=== PATIENT | female | born 1965 | race Asian ===

== ENCOUNTER 2018-03-21 09:28 | Outpatient (CLI) | payer OTHER | END 2018-03-21 09:29 | disposition home or self-care (01) | LOC: BICULT 09:28 | PROVIDERS: ATTEND Nurse Practitioner Family | DX: R10.9 Unspecified abdominal pain (principal) | CPT/HCPCS: 76700 ==

== ENCOUNTER 2018-04-19 08:36 | Outpatient (CLI) | payer OTHER ==
--- NOTE | 2018-04-19 13:56 | NM ---
HEPATOBILIARY SCAN: HISTORY: Abdominal pain. RADIOPHARMACEUTICAL: 4.8 mCi Technetium 99m-mebrofenin injected intravenously. FINDINGS: There is good tracer extraction by the liver by prompt excretion to the urinary tract and small bowel loops with normal filling of the gallbladder. The calculated gallbladder ejection fraction followin g an oral fatty meal measures 33%. IMPRESSION: Borderline normal gallbladder ejection fraction; otherwise, unremarkable exam. POS: [facility]
== END 2018-04-19 08:37 | disposition home or self-care (01) ==
LOC: NM 08:36
PROVIDERS: ATTEND Nurse Practitioner Family
DX: R10.9 Unspecified abdominal pain (principal)
CPT/HCPCS: 78227; A9537